=== PATIENT | female | born 1980 | race Two or more races ===

== ENCOUNTER 2019-09-24 02:30 | Emergency (ER) | payer OTHER ==
[~2019-09-24] VITALS: Ht 167.6 cm; Wt 68.0 kg
[2019-09-24] MEDS ORDERED: PRENATAL + DHA1 EAC1 (02:40)
== END 2019-09-24 12:28 | disposition home or self-care (01) ==
LOC: ER 02:30
DX: O02.1 Missed abortion (principal)